=== PATIENT | female | born 1970 ===

== ENCOUNTER 2022-08-31 06:22 | Day surgery (SDC) | payer MEDICARE, OTHER ==
[~2022-08-31 06:22] MED LIST: Dextrose 5%-0.45% NaCl 1,000 ML IV SCH; Midazolam 1 MG/ML 2 ML SDV ONE; Sodium Chloride 0.9% 10 ML Syringe FLUSH PRN; Sodium Chloride 0.9% 10 ML Syringe FLUSH SCH; fentaNYL 100 MCG/2 ML SDV ONE
[2022-08-31] MEDS ORDERED: Midazolam 1 MG/ML 2 ML SDV IV ONE ×7 (06:23→07:19)
[2022-08-31] MEDS ORDERED: fentaNYL 100 MCG/2 ML SDV IV ONE ×3 (06:23→07:11)
== END 2022-08-31 09:20 | disposition home or self-care (01) ==
LOC: DL.ENDO 06:22
PROVIDERS: ATTEND Internal Medicine Gastroenterology
DX: Z12.11 Encounter for screening for malignant neoplasm of colon (principal); K57.30 Diverticulosis of large intestine without perforation or abscess without bleeding; E66.09 Other obesity due to excess calories; E11.9 Type 2 diabetes mellitus without complications; E78.5 Hyperlipidemia, unspecified; Z98.890 Other specified postprocedural states; Z88.6 Allergy status to analgesic agent; Z68.44 Body mass index [BMI] 60.0-69.9, adult; Z91.040 Latex allergy status; Z88.8 Allergy status to other drugs, medicaments and biological substances
CPT/HCPCS: J2250; J3010